=== PATIENT | male | born 1960 | race Caucasian/White ===

== ENCOUNTER 2022-07-21 10:20 | Emergency (ER) | payer OTHER ==
[~2022-07-21] VITALS: Ht 185.4 cm; Wt 128.3 kg
[2022-07-21] MEDS ORDERED: CEPH500T PO (11:20)
--- NOTE | 2022-07-21 11:20 | ED Lower Extremity ---
General Chief Complaint: Lower Extremity Stated Complaint: SORE ON LEFT FOOT Nursing Triage Note: YESTERDAY WAS SUGGESTED HE NEEDED TO SEE A MEDICAL PROFESSIONAL FOR HIS LEFT FOOT ULCER. Source: patient Exam Limitations: no limitations History of Present Illness Date Seen by Provider: Jul 21, 2022 Time Seen by Provider: 11:15 Initial Comments Patient Is a 62-year-old male with a history of Charcot of the left foot presents the ED for drainage to a chronic wound to his left plantar foot. Patient wears orthotic boot chronically for his Charcot of the left foot. Doreen yao is from [employer]. Patient is currently traveling through the area going to [place] to [employer]. States today he noted some bloody drainage from his wound to the left plantar foot. After the bloody drainage stopped, he noted clear drainage. Denies of any purulent drainage or odor. Patient states he has been up on his feet as he is currently fishing and camping. Patient denies of any surgery to the left foot. He does follow a director nicu. Was recommended come to ED for further evaluation. Concern for the bloody drainage. Denies any fever, chills, nausea, vomiting, diarrhea. Patient is type II diabetic currently on insulin Allergies and Home Medications Allergies Coded Allergies: No Known Drug Allergies (Unverified , 07/21/22) Patient Home Medication List Home Medication List Reviewed: Yes Cephalexin (Cephalexin) 500 Mg Tablet, 500 MG PO QID Prescribed by: BJ STEPHEN on 07/21/22 1120 Review of Systems Constitutional: No chills EENTM: No ear pain, No blurred vision, No double vision Respiratory: No cough, No dyspnea on exertion Cardiovascular: No chest pain Gastrointestinal: No abdominal pain, No diarrhea, No nausea, No vomiting Genitourinary: No decreased output, No discharge Musculoskeletal: No back pain, No joint pain, No joint swelling Skin: change in color All Other Systems Reviewed Negative Unless Noted: Yes Past Zzmvqbv-Eormkq-Qavfah Hx Patient Social History Tobacco Use?: No Use of E-Cig and/or Vaping dev: No E-Cig or Vaping type used: Nicotine Use of E-Cig and/or Vaping Chato: Current Everyday User Substance use?: No Alcohol Use?: No Pt feels they are or have been: No Immunizations Up To Date Influenza Vaccine Up-to-Date: Yes; Up-to-Date First/Initial COVID19 Vaccinat: "2 shots" Past Medical History Surgery/Hospitalization HX: NIDDM, HTN, HIGH CHOLESTEROL, DEPRESSION, AFIB, TAHCYCARDIA PACEMAKER DEFIBULATOR, RIGHT KNEE, APPY Physical Exam Vital Signs Vital Signs - First Documented 07/21/22 10:35 Temp 36.9 Pulse 81 Resp 18 B/P (MAP) 125/763 (552) Pulse Ox 96 O2 Delivery Room Air Capillary Refill : Less Than 3 Seconds Height, Weight, BMI Height: '" Weight: lbs. oz. kg; 37.00 BMI Method: General Appearance: WD/WN, no apparent distress HEENT: PERRL/EOMI, normal ENT inspection, TMs normal, pharynx normal Neck: non-tender, full range of motion, supple, normal inspection Cardiovascular: regular rate, rhythm, no edema, no gallop, no JVD Respiratory: chest non-tender, lungs clear, normal breath sounds, no respiratory distress, no accessory muscle use Gastrointestinal: normal bowel sounds, non tender, soft, no organomegaly Back: normal inspection Hips: bilateral hip non-tender Knees: bilateral knee non-tender, bilateral knee normal inspection, bilateral knee normal range of motion Ankles: bilateral ankle non-tender, bilateral ankle normal inspection, bilateral ankle normal range of motion Feet: left foot soft tissue tenderness, left foot swelling Neurologic/Tendon: normal sensation, normal motor functions, normal tendon functions Neurologic/Psychiatric: moisture meter reader II-XII nml as tested, no motor/sensory deficits, a lert, normal mood/affect, oriented x 3 Progress/Results/Core Measures Results/Orders Vital Signs/I&O 07/21/22 07/21/22 10:35 11:25 Temp 36.9 36.9 Pulse 81 81 Resp 18 18 B/P (MAP) 125/763 (552) 125/763 Pulse Ox 96 96 O2 Delivery Room Air Room Air Blood Pressure Mean: 552 Departure Communication (PCP) Differential diagnosis, chronic wound, cellulitis, abscess left foot. Patient with Charcot of left foot. Patient wears orthotics boot. Patient noted some increasing pain yesterday and today. Removed a scab noted bloody drainage and clear drainage. Denies any purulent drainage or odor. Denies history of surgery. Follows a director nicu at this morning's. Currently traveling to go fishing to [place]. On exam no strong evidence of infection. Type II diabetic insulin-dependent. No surrounding evidence of cellulitis. Loose tissue. Does not appear infected. Does have a chronic wound there which appears to be near healed. Neurovascular intact. Due to his history of diabetes and open wound. Will discharge with Keflex. Denies history of MRSA. Strongly recommend staying off of the left foot. Would likely benefit following up with wound care. Patient states he will return back to [facility] at this time. Patient denies of any worsening pain to the left foot. Pain improved after fluid drained. No evidence of abscess. No active drainage. no further incision or drainage needed. Impression Primary Impression: Chronic wound of extremity Disposition: HOME, SELF-CARE Condition: Stable Departure-Patient Inst. Decision time for Depature: 11:19 [facility]: [facility] [place] NO,LOCAL PHYSICIAN (PCP) Primary Care Physician Patient Instructions: Wound Care ED Scripts Cephalexin (Cephalexin) 500 Mg Tablet 500 MG PO QID for 7 Days, #28 TAB Prov: CRISTOBAL IGNACIO 07/21/22 CRISTOBAL IGNACIO Jul 21, 2022 11:20
[2022-07-21 11:25] VITALS: BP 125/763
== END 2022-07-21 11:25 | disposition home or self-care (01) ==
LOC: ER 10:22
DX: S91.302A Unspecified open wound, left foot, initial encounter (principal); E11.9 Type 2 diabetes mellitus without complications; F17.290 Nicotine dependence, other tobacco product, uncomplicated; Z79.4 Long term (current) use of insulin; X58.XXXA Exposure to other specified factors, initial encounter